=== PATIENT | female | born 1970 | race Caucasian/White ===

== ENCOUNTER 2021-11-15 13:41 | Outpatient (CLI) | payer BC | END 2021-11-15 13:42 | disposition home or self-care (01) | LOC: CSHMAMMO 13:41 | PROVIDERS: ATTEND Obstetrics & Gynecology | DX: Z12.31 Encounter for screening mammogram for malignant neoplasm of breast (principal) | CPT/HCPCS: 77063; 77067 ==

== ENCOUNTER 2023-03-23 10:47 | Outpatient (CLI) | payer BC | END 2023-03-23 10:48 | disposition home or self-care (01) | LOC: CSHMAMMO 10:47 | PROVIDERS: ATTEND Obstetrics & Gynecology | DX: Z53.9 Procedure and treatment not carried out, unspecified reason (principal) ==

== ENCOUNTER 2023-03-28 13:38 | Outpatient (CLI) | payer BC | END 2023-03-28 13:39 | disposition home or self-care (01) | LOC: CSHMAMMO 13:38 | PROVIDERS: ATTEND Obstetrics & Gynecology | DX: N63.10 Unspecified lump in the right breast, unspecified quadrant (principal); N60.01 Solitary cyst of right breast | CPT/HCPCS: 77066; G0279 ==

== ENCOUNTER 2023-12-01 13:23 | Outpatient (CLI) | payer BC | END 2023-12-01 13:24 | disposition home or self-care (01) | LOC: CSHULT 13:23 | PROVIDERS: ATTEND Obstetrics & Gynecology | DX: N60.01 Solitary cyst of right breast (principal) ==